=== PATIENT | female | born 1955 | race Caucasian/White ===

== ENCOUNTER 2018-04-29 08:10 | Outpatient (CLI) | payer BC, OTHER | END 2018-04-29 08:11 | disposition home or self-care (01) | LOC: BICMAMMO 08:10 | PROVIDERS: ATTEND Family Medicine | DX: Z12.31 Encounter for screening mammogram for malignant neoplasm of breast (principal); Z80.3 Family history of malignant neoplasm of breast | CPT/HCPCS: 77063; 77067 ==

== ENCOUNTER 2018-05-17 09:02 | Emergency (ER) | payer BC, OTHER ==
[2018-05-17 09:35] LABS: #Eosinphils 0.1 thou/uL (0.0-0.7); #Lymphocytes 1.2 thou/uL (1.20-3.40); #Monocytes 0.7 thou/uL (0.11-0.59); #Neutrophils 5.2 thou/uL (1.40-6.50); %Basophils 0.6 % (0.0-1.0); %Eosinophils 0.8 % (0.0-10.0); %Lymphocytes 16.6 % (21.0-51.0); %Monocytes 9.1 % (0.0-10.0); %Neutrophils 72.9 % (42.0-75.0); Hemoglobin 13.4 g/dL (12.0-16.0); Mean Corpuscular HGB CONC 33.6 g/dL (32.0-36.0); Mean Corpuscular Hemoglobin 31.3 pg (27.0-31.0); Mean Corpuscular Volume 93.1 fL (78.0-98.0); Mean Platelet Volume 6.3 fL (7.4-10.4); Platelet Count 238 thou/uL (130-400); RBC Distribution Width 12.4 % (11.5-14.5); Red Blood Cell (RBC) Count 4.29 mill/uL (4.20-5.40); White Blood Cell (WBC) Count 7.1 thou/uL (4.8-10.8)
[2018-05-17 09:51] LABS: Bilirubin Negative (Negative); Blood, Urine Negative (Negative); Clarity CLEAR (Clear); Glucose, Urine (Dipstick) Negative (Negative); Leukocyte Small (Negative); Nitrite Negative (Negative); Protein, Urine (Dipstick) Negative (Neg-Trace); Specific Gravity, Urine 1.003 (1.002-1.036); Urobilinogen 0.2 mg/dL (0.2-1.0); pH, Urine 7.5 (5.0-9.0)
[2018-05-17 09:59] LABS: ALT (SGPT) 14 U/L (8-55); AST (SGOT) 18 U/L (5-34); Albumin 4.3 g/dL (3.4-4.8); Alkaline Phosphatase 78 U/L (40-150); Anion Gap 13 mmol/L (10-20); BUN (Urea Nitrogen) 11 mg/dL (9.8-20.1); Bilirubin, Total 0.8 mg/dL (0.2-1.2); Calc. Creatinine Clearance 0 mL/min (70-130); Calcium 9.6 mg/dL (7.8-10.44); Carbon Dioxide 27 mmol/L (23-31); Chloride 103 mmol/L (98-107); Estimated GFR-MDRD 82; Glucose 109 mg/dL (80-115); Lipase 20 U/L (8-78); Potassium 4.2 mmol/L (3.5-5.1); Protein, Total 7.3 g/dL (6.0-8.3); Sodium 139 mmol/L (136-145)
[2018-05-17 10:01] LABS: Bacteria/HPF Rare-Few HPF (None Seen); Hyaline Casts/LPF 0-3 HYALINE CAST LPF (0-3 Hyaline); RBC/HPF 0-3 HPF (0-3); Squamous Epithelial 0-3 HPF (0-3); WBC/HPF 0-3 HPF (0-3)
[2018-05-17] MEDS ORDERED: diphenhydrAMINE 50 MG/ML VIAL ONE (10:29)
--- NOTE | 2018-05-17 10:56 | CT ---
ABDOMEN CT WITH CONTRAST PELVIC CT WITH CONTRAST: History Abdominal pain. Suprapubic pain. COMPARISON: None. TECHNIQUE: An abdomen and pelvic CT is performed with IV contrast. Enteric contrast was not administered. Coron al reformatted images are submitted for interpretation. FINDINGS: The patient had an allergic reaction. The patient experienced hives and itching. Moderate reaction. The patient was treated with IV Benadryl and transferred to the ER. ABDOMEN CT: Lung bases are clear. Heart size normal. No pericardial effusion. The descending thoracic aorta an d abdominal aorta have a normal caliber. No periaortic fat stranding. Intra- and extrahepatic portal vein is patent. Liver, spleen, pancreas, and adrenal glands have appropriate enhancement. No gastrohepatic, retrocrural, or periportal lymphadenopathy. No mesenteric mass, lymphadenopathy, free air, or free fluid. Symmetric enhancement of the kidneys. Bilaterally, no obstructive uropathy. Limited evaluation of the alimentary canal due to lack of oral contrast. Gastric mucosa, duodenum, a nd multiple normal-caliber small bowel loops are noted. Ileocecal junction is normal. Normal-calibe r appendix. Scattered fecal material in a nondistended, nondilated colon. PELVIC CT: Uterus and adnexal structures are unremarkable. A trace amount of free fluid in the pelvis. No mass , lymphadenopathy, or free air. Urinary bladder is unremarkable. No lytic or blastic lesions in the osseous structures. IMPRESSION: 1. No acute abnormality in the abdomen or pelvis. 2. No evidence of bowel obstruction. 3. Normal caliber appendix. POS: [facility]
[2018-05-17] MEDS ORDERED: Iopamidol 370 76% 100 ML VIAL ONE (13:45)
== END 2018-05-17 12:53 | disposition home or self-care (01) ==
LOC: ERS 09:02
DX: R10.32 Left lower quadrant pain (principal); R10.31 Right lower quadrant pain; K21.9 Gastro-esophageal reflux disease without esophagitis
CPT/HCPCS: 74177; 80053; 81003; 81015; 83605; 83690; 85025; 87086; J1200

== ENCOUNTER 2018-08-10 13:31 | Outpatient (CLI) | payer BC, OTHER ==
--- NOTE | 2018-08-10 16:11 | MRI ---
BRAIN MRI WITHOUT CONTRAST: 08/10/18 HISTORY: Altered awareness. Headaches and confusion. COMPARISON: 11/16/14. TECHNIQUE: Brain MRI is performed without intravenous gadolinium administration. Multisequential, multiplanar im aging is performed. FINDINGS: No hemorrhage on the axial gradient echo sequence. No parenchymal mass, mass effect or midline shift. Brain volume is age appropriate. Cortical quiles-whi te matter differentiation is preserved. Ventricles and sulci are patent and symmetric. No significant T2 or FLAIR white matter hyperintensiti es. Central arterial flow voids are maintained. Absent restricted diffusion. Small mucous retention cyst in the left maxillary sinus. Minimal mucosal thickening of the paranasal sinuses. Calvarium has a normal T1 marrow signal intensity. Midline brain parenchymal structures are unremarkable. IMPRESSION: Unremarkable noncontrast brain MRI. POS: [facility]
== END 2018-08-10 13:32 | disposition home or self-care (01) ==
LOC: BICMRI 13:31
PROVIDERS: ATTEND Family Medicine
DX: R41.82 Altered mental status, unspecified (principal); Z87.820 Personal history of traumatic brain injury
CPT/HCPCS: 70551

== ENCOUNTER 2018-11-11 08:33 | Outpatient (CLI) | payer BC, OTHER ==
--- NOTE | 2018-11-11 11:09 | MRI ---
MRI OF THE RIGHT SHOULDER: Date: 11-11-18 Provided Clinical History: Right shoulder pain. FINDINGS: Comparison is made with 02-18-16. Evaluation is limited by patient motion. There is no evidence for full thickness rotator cuff tear. There is a small partial thickness undersu rface tear suspected involving the anterior distal supraspinatus tendon at the foot plate which may b e high grade in nature. The longhead biceps tendon is again noted visualized compatible with disrupti on. Slap tear involving the superior labrum is redemonstrated. The glenoid labrum and glenohumeral ar ticular cartilage are suboptimally evaluated in the absence of joint distention but appear otherwise normal. The amount of fluid within the glenohumeral joint appears physiologic. There is greater than physiologic subacromial subdeltoid bursal fluid. The acromioclavicular joint osteoarthrosis and lateral downsloping of the acromion near the subacromi al space. There is greater than physiologic subacromial subdeltoid bursal fluid. Rotator cuff muscular volume appears preserved. No focal concerning regional marrow or muscular signa l abnormality is apparent. IMPRESSION: 1. Limited study due to patient motion. 2. At least high grade partial thickness undersurface tear is suspected involving the anterior distal supraspinatus tendon at the foot plate. 3. Slap tear and disruption of the long head biceps tendon are redemonstrated. 4. Acromioclavicular joint osteoarthrosis and lateral downsloping of the acromion prominently narrow the subacromial space. Correlate for subacromial impingement. 5. Greater than physiologic subacromial subdeltoid bursal fluid may reflect an occult full thickness component of the described tear versus bursitis. POS: [facility]
== END 2018-11-11 08:34 | disposition home or self-care (01) ==
LOC: BICMRI 08:33
PROVIDERS: ATTEND Family Medicine
DX: S46.111D Strain of muscle, fascia and tendon of long head of biceps, right arm, subsequent encounter (principal); M19.011 Primary osteoarthritis, right shoulder

== ENCOUNTER 2019-05-03 07:41 | Outpatient (CLI) | payer BC, OTHER ==
--- NOTE | 2019-05-03 08:28 | MMO ---
Bilateral MAMMO Bilat Screen [facility]. CLINICAL HISTORY: Patient is 63 years old and is seen for screening. The patient has no family history of breast cancer. The patient has no personal history of cancer. VIEWS: The views performed were: bilateral craniocaudal with tomosynthesis and bilateral mediolateral oblique with tomosynthesis. FILMS COMPARED: The present examination has been compared to a prior imaging study performed at [facility] on 04/29/2018. MAMMOGRAM FINDINGS: There are scattered fibroglandular densities. There are no suspicious masses, suspicious calcifications, or new areas of architectural distortion. IMPRESSION: THERE IS NO MAMMOGRAPHIC EVIDENCE OF MALIGNANCY. A ROUTINE FOLLOW-UP MAMMOGRAM IN 1 YEAR IS RECOMMENDED. THE RESULTS OF THIS EXAM WERE SENT TO THE PATIENT. ACR BI-RADS Category 1 - Negative MAMMOGRAPHY NOTE: 1. A negative mammogram report should not delay a biopsy if a dominant of clinically suspicious mass is present. 2. Approximately 10% to 15% of breast cancers are not detected by mammography. 3. Adenosis and dense breasts may obscure an underlying neoplasm.
== END 2019-05-03 07:42 | disposition home or self-care (01) ==
LOC: BICMAMMO 07:41
PROVIDERS: ATTEND Family Medicine
DX: Z12.31 Encounter for screening mammogram for malignant neoplasm of breast (principal)
CPT/HCPCS: 77063; 77067

== ENCOUNTER 2019-08-27 20:30 | Outpatient (CLI) | payer BC, OTHER | END 2019-08-27 20:31 | disposition home or self-care (01) | LOC: SLEEPLAB 20:30 | PROVIDERS: ATTEND Psychiatry & Neurology Neurology | DX: G47.33 Obstructive sleep apnea (adult) (pediatric) (principal); R06.83 Snoring; G47.00 Insomnia, unspecified; G47.10 Hypersomnia, unspecified; R51 Headache | CPT/HCPCS: 95811 ==

== ENCOUNTER 2021-04-09 07:08 | Outpatient (CLI) | payer OTHER ==
[2021-04-09] MEDS ORDERED: Iopamidol 370 76% 100 ML VIAL ONE (08:48)
== END 2021-04-09 07:09 | disposition home or self-care (01) ==
LOC: CT 07:08
PROVIDERS: ATTEND Family Medicine
DX: R10.9 Unspecified abdominal pain (principal); R19.00 Intra-abdominal and pelvic swelling, mass and lump, unspecified site
CPT/HCPCS: 74177

== ENCOUNTER 2021-04-09 08:29 | Emergency (ER) | payer OTHER ==
[~2021-04-09 08:29] MED LIST: diphenhydrAMINE 50 MG/ML VIAL ONE; methylPREDNISolone Sod Succ/PF 125 MG/2 ML VIAL ONE
[2021-04-09] MEDS ORDERED: EPINEPHrine 1 MG/ML VIAL ONE (08:47)
[2021-04-09] MEDS ORDERED: Famotidine/PF 20 mg/2ml Vial ONE (08:48)
== END 2021-04-09 10:21 | disposition home or self-care (01) ==
LOC: ERS 08:29
DX: T78.2XXA Anaphylactic shock, unspecified, initial encounter (principal); K21.9 Gastro-esophageal reflux disease without esophagitis; Z79.899 Other long term (current) drug therapy; Z79.82 Long term (current) use of aspirin
CPT/HCPCS: 74177; 93005; J0171; J1200; J2930; Q9967; S0028

== ENCOUNTER 2021-04-09 12:23 | Outpatient (CLI) | payer MEDICARE, OTHER | END 2021-04-09 12:24 | disposition home or self-care (01) | LOC: BICMAMMO 12:23 | PROVIDERS: ATTEND Family Medicine | DX: Z12.31 Encounter for screening mammogram for malignant neoplasm of breast (principal) | CPT/HCPCS: 77063; 77067 ==

== ENCOUNTER 2024-04-08 13:02 | Outpatient (CLI) | payer MEDICARE, OTHER | END 2024-04-08 13:03 | disposition home or self-care (01) | LOC: CT 13:02 | PROVIDERS: ATTEND Family Medicine | DX: J34.89 Other specified disorders of nose and nasal sinuses (principal) ==